=== PATIENT | male | born 1965 | race Caucasian/White ===

== ENCOUNTER 2016-06-22 15:10 | Emergency (ER) | payer OTHER ==
[~2016-06-22] VITALS: Ht 177.8 cm; Wt 86.2 kg
[2016-06-22 15:54] LABS: ABSOLUTE BASOPHIL COUNT 0 /CUMM (0.0-0.2); ABSOLUTE EOSINOPHIL COUNT 0 /CUMM (0.0-0.7); ABSOLUTE GRANULOCYTE CT 12.3 /CUMM (1.4-6.5); ABSOLUTE LYMPH COUNT 0.9 /CUMM (1.2-3.4); ABSOLUTE MONOCYTE COUNT 0.6 /CUMM (0.10-0.60); BASOPHIL % 0.2 % (0.0-2.0); EOSINOPHIL % 0.1 % (0-5); HEMATOCRIT 45.5 % (42-52); MEAN CORPUSCULAR HGB 30.3 PG (27.0-31.0); MEAN CORPUSCULAR HGB CONC 34.1 G/DL (33.0-37.0); MEAN CORPUSCULAR VOLUME 88.9 FL (80.0-94.0); MEAN PLATELET VOLUME 8.5 FL (7.4-10.4); PLATELET COUNT 254 /CUMM (130-400); RBC DISTRIBUTION WIDTH 12.5 % (11.5-14.5); RED BLOOD CELL CT 5.12 /CUMM (4.70-6.10); WHITE BLOOD CELL COUNT 13.9 /CUMM (4.8-10.8)
--- NOTE | 2016-06-22 15:56 | ED GI/GU/ABDOMINAL COMPLAINT ---
History of Present Illness General Chief Complaint: Abdominal Pain/Flank Pain Stated Complaint: FLANK PAIN,VOMITING Source: patient Exam Limitations: no limitations Vital Signs & Intake/Output Vital Signs & Intake/Output Vital Signs Date Time Temp Pulse Resp B/P Pulse O2 O2 Flow FiO2 Ox Delivery Rate 06/22 1838 99.3 87 18 128/66 98 06/22 1718 99.4 75 18 137/65 97 06/22 1640 Room Air 06/22 1520 99.5 85 16 143/76 9 Allergies Coded Allergies: No Known Allergies (06/22/16) Triage Note: PT STATES HE HAS BEEN HAVING BACK PAIN LEFT SIDE AND THEN HE BEGAN VOMITING,. PT STATES HE HASN'T STOPPED VOMITING SINCE. Triage Nurses Notes Reviewed? yes Onset: Abrupt Duration: day(s): (last night), constant, continues in ED Timing: recent history Quality/Severity: moderate, sharpness, severe Location: left flank Radiation: LLQ Activities at Onset: none No Modifying Factors: none HPI: 51-year-old male comes into emergency room with complaints of sudden onset left flank pain around midnight last night. Throbbing. Continuous. Pain wraps around left side. Denies any urinary symptoms. Denies any fever chills. Denies any other associated symptoms. (SHUBHAM PAL) Reconcile Medications Ciprofloxacin HCl (Cipro) 250 MG TABLET 1 TAB PO BID uti Ibuprofen 800 MG TABLET 1 TAB PO TID pain Oxycodone HCl/Acetaminophen (Percocet 5-325 MG Tablet) 5 MG-325 MG TABLET 1-2 TAB PO Q6P PRN pain Tamsulosin HCl (Flomax) 0.4 MG CAP.ER.24H 1 CAP PO DAILY kidney stone (ADRIAN CLEMENTS,SAEED) Past History Travel History Traveled to [place] past 21 day No Medical History Any Pertinent Medical History? see below for history Cardiovascular: hyperlipidemia Respiratory: obstructive sleep apnea Endocrine: diabetes Surgical History Surgical History: non-contributory Psychosocial History What is your primary language Lithuanian Tobacco Use: Never used ETOH Use: occasional use Illicit Drug Use: denies illicit drug use Family History Hx Contributory? No (SHUBHAM PAL) Review of Systems Review of Systems Constitutional: Reports: no symptoms. EENTM: Reports: no symptoms. Respiratory: Reports: no symptoms. Cardiovascular: Reports: no symptoms. GI: Reports: see HPI. Genitourinary: Reports: see HPI. Musculoskeletal: Reports: no symptoms. Skin: Reports: no symptoms. Neurological/Psychological: Reports: no symptoms. Hematologic/Endocrine: Reports: no symptoms. Immunologic/Allergic: Reports: no symptoms. All Other Systems: Reviewed and Negative (SHUBHAM PAL) Physical Exam Physical Exam General Appearance: well developed/nourished, no apparent distress, alert, awake Head: atraumatic, normal appearance Eyes: Bilateral: normal appearance, EOMI. Ears, Nose, Throat, Mouth: hearing grossly normal, moist mucous membrane Neck: normal inspection, full range of motion Respiratory: normal breath sounds, no respiratory distress Cardiovascular: regular rate/rhythm Gastrointestinal: normal bowel sounds, soft, non-tender Back: normal inspection Extremities: normal range of motion Neurologic/Psych: awake, alert, oriented x 3, normal gait, normal mood/affect Skin: intact, normal color Core Measures ACS in differential dx? No Severe Sepsis Present: No Septic Shock Present: No (SHUBHAM PAL) Progress Differential Diagnosis: appendicitis, biliary colic, bowel obstruction, colon cancer, diverticulitis, orchitis, pancreatitis, prostatitis, peptic ulcer, pyelonephritis, SBO, ureterolithiasis, urinary retention, urethritis, UTI/pyelo Plan of Care: Orders Procedure Date/time Status Add-on Test (ER Only) 06/22 1550 Active LIPASE 06/22 1530 Complete AMYLASE 06/22 1530 Complete COMPREHENSIVE METABOLIC PANEL 06/22 1529 Complete CBC WITHOUT DIFFERENTIAL 06/22 1529 Complete URINALYSIS 06/22 1523 Complete Laboratory Tests 06/22/16 1530: Anion Gap 18 H, Estimated GFR > 60, BUN/Creatinine Ratio 19.2, Glucose 217 H, Calcium 9.9, Total Bilirubin 0.8, AST 37, ALT 78 H, Alkaline Phosphatase 70, Total Protein 7.6, Albumin 4.8, Globulin 2.8, Albumin/Globulin Ratio 1.7, Amylase 121 H, Lipase 470 H, CBC w Diff NO MAN DIFF REQ, RBC 5.12, MCV 88.9, MCH 30.3, RDW 12.5, MPV 8.5, Gran % 88.7 H, Lymphocytes % 6.6 L, Monocytes % 4.4, Eosinophils % 0.1, Basophils % 0.2, Absolute Granulocytes 12.3 H, Absolute Lymphocytes 0.9 L, Absolute Monocytes 0.6, Absolute Eosinophils 0, Absolute Basophils 0, PUBS MCHC 34.1 06/22/16 1527: Urine Color YEL, Urine Clarity CLEAR, Urine pH 7.0, Ur Specific [place] 1.020, Urine Protein TRACE H, Urine Ketones 15 H, Urine Nitrite NEG, Urine Bilirubin NEG, Urine Urobilinogen 0.2, Ur Leukocyte Esterase NEG, Ur Microscopic SEDIMENT EXAMINED, Urine RBC 1-3, Urine WBC RARE, Urine Hemoglobin TRACE-INTACT H, Urine Glucose >=1000 H Diagnostic Imaging: Viewed by Me: CT Scan. Discussed w/RAD: CT Scan. Radiology Impression: SERVICE DATE: 06/22/16 EXAM TYPE: CAT - CT ABD & PELVIS W/O IV CONTRAS EXAMINATION: CT ABDOMEN AND PELVIS WITHOUT CONTRAST CLINICAL INFORMATION: Swelling onset flank pain. Evaluate for left-sided kidney stone. COMPARISON: None. TECHNIQUE: Multidetector volumetric imaging was performed from the superior aspect of the liver through the pubic symphysis. Sagittal and coronal reformatted images were obtained on the technologist's workstation. DLP: 448 mGy-cm. FINDINGS: Visualized lung bases are well aerated. Mild dependent atelectasis. The liver is normal in size but demonstrates diffusely decreased attenuation. No gross intrahepatic biliary ductal dilatation. The gallbladder has been surgically removed. The pancreas, spleen and adrenal glands are unremarkable. 3 mm calculus within the left ureterovesical junction resulting in moderate dilatation of the left ureter and mild left-sided hydronephrosis. There is stranding surrounding the left ureter and asymmetrical perinephric stranding of the left kidney. No other renal calculi are appreciated within the left or right kidneys. There is no right- sided hydronephrosis. Normal caliber loops of small and large bowel. Normal appendix. Small fat-containing umbilical hernia. The bladder is underdistended and therefore difficult to accurately evaluate. Coarse calcifications within the prostate gland which measures 4.2 cm in transverse dimension. No pelvic lymphadenopathy. No acute osseous abnormality. Mild degenerative changes of the lumbar spine. A few subcentimeter sclerotic densities within the bony pelvis are nonspecific but statistically claim service representative of bone islands. IMPRESSION: 1. Mild left-sided hydronephrosis and moderate dilatation of the left ureter secondary to 3 mm calculus within the left ureterovesical junction. Asymmetrical perinephric stranding of the left kidney and ureter is also present. 2. Diffusely decreased liver attenuation, most suggestive of hepatic steatosis. DICTATED BY: LORENE FONSECA MD DATE/TIME DICTATED:06/22/161650 TRAVEL ADMINISTRATOR:RADHA Initial ED EKG: none Comments: 06/22/2016 6:38:12 PM Patient clinically looks well. Nontoxic-appearing. In no apparent distress. Patient feels significantly better after IV medications. Patient will follow up with urology. Return if any other concerns. Patient understands and agrees with plan of care. Patient reevaluated multiple times. (MARILU ALLEN,SHUBHAM) Departure Departure Disposition: HOME OR SELF CARE Condition: Stable Clinical Impression Primary Impression: Kidney stone Referrals: DANNY HARGROVE MD (PCP/Family) Additional Instructions: Take Percocet, Flomax, and Motrin as prescribed. Follow-up with urologist. Return to the emergency room immediately if any other concerns worsening symptoms. Please go over all results of today's visit with your primary care doctor. Contact your primary care doctor to let them know you were here in the emergency room. There may be nonspecific findings which may not be related to your visit today here in the emergency room but may require further evaluation and chronic monitoring by your primary care doctor. If you had a laceration today the chance of foreign body always remains. You should follow-up with your primary care doctor for recheck in 3-5 days for a wound check. If you had an x-ray done there is a chance that a fracture could have been missed on initial read and you should follow-up with your primary care doctor for repeat x-rays if symptoms persist. If your blood pressure was elevated here in the emergency room please have rechecked by her primary care doctor within the next 48 hours by your primary care doctor. If you were prescribed a narcotic here in the emergency room or any type of controlled substances you're not allowed to drive while taking this medication or operate any type of heavy machinery. Narcotics can make you feel lightheaded dizziness nausea and can cause constipation. You may need to leaf size picker a stool softener. Thank you for choosing [facility] emergency room. Please return to the emergency room immediately if you have any other concerns worsening of symptoms. Departure Forms: Customer Survey General Discharge Information Prescriptions: Current Visit Scripts Oxycodone HCl/Acetaminophen (Percocet 5-325 MG Tablet) 1-2 TAB PO Q6P PRN pain #20 TAB Tamsulosin HCl (Flomax) 1 CAP PO DAILY #10 CAP Ibuprofen 1 TAB PO TID #30 TAB Ciprofloxacin HCl (Cipro) 1 TAB PO BID #14 TAB (SHUBHAM PAL) PA/FISHING INSTRUCTOR Co-Sign Statement Statement: ED Attending supervision documentation- [] I saw and evaluated the patient. I have also reviewed all the pertinent lab results and diagnostic results. I agree with the findings and the plan of care as documented in the PA's/FISHING INSTRUCTOR's documentation. [X] I have reviewed the ED Record and agree with the PA's/FISHING INSTRUCTOR's documentation. [] Additions or exceptions (if any) to the PAs/FISHING INSTRUCTOR's note and plan are summarized below: [] (ADRIAN CLEMENTS,SAEED)
[2016-06-22 16:03] LABS: GRANULOCYTE % 88.7 % (42.2-75.2)
--- NOTE | 2016-06-22 17:06 | CT SCAN REPORT ---
EXAMINATION: CT ABDOMEN AND PELVIS WITHOUT CONTRAST CLINICAL INFORMATION: Swelling onset flank pain. Evaluate for left-sided kidney stone. COMPARISON: None. TECHNIQUE: Multidetector volumetric imaging was performed from the superior aspect of the liver through the pubic symphysis. Sagittal and coronal reformatted images were obtained on the technologist's workstation. DLP: 448 mGy-cm. FINDINGS: Visualized lung bases are well aerated. Mild dependent atelectasis. The liver is normal in size but demonstrates diffusely decreased attenuation. No gross intrahepatic biliary ductal dilatation. The gallbladder has been surgically removed. The pancreas, spleen and adrenal glands are unremarkable. 3 mm calculus within the left ureterovesical junction resulting in moderate dilatation of the left ureter and mild left-sided hydronephrosis. There is stranding surrounding the left ureter and asymmetrical perinephric stranding of the left kidney. No other renal calculi are appreciated within the left or right kidneys. There is no right-sided hydronephrosis. Normal caliber loops of small and large bowel. Normal appendix. Small fat-containing umbilical hernia. The bladder is underdistended and therefore difficult to accurately evaluate. Coarse calcifications within the prostate gland which measures 4.2 cm in transverse dimension. No pelvic lymphadenopathy. No acute osseous abnormality. Mild degenerative changes of the lumbar spine. A few subcentimeter sclerotic densities within the bony pelvis are nonspecific but statistically access service representative of bone islands. IMPRESSION: 1. Mild left-sided hydronephrosis and moderate dilatation of the left ureter secondary to 3 mm calculus within the left ureterovesical junction. Asymmetrical perinephric stranding of the left kidney and ureter is also present. 2. Diffusely decreased liver attenuation, most suggestive of hepatic steatosis.
[2016-06-22] MEDS ORDERED: FLOMAX0.4 M1 PO (18:24)
[2016-06-22] MEDS ORDERED: PERCOCET 5-3251 EACH PO (18:24)
[2016-06-22] MEDS ORDERED: IBUPROFEN800 M1 PO (18:24)
[2016-06-22 18:38] VITALS: BP 128/66
[2016-06-22] MEDS ORDERED: CIPRO250 M1 PO (18:39)
== END 2016-06-22 19:13 ==
LOC: ERH 15:10
PROVIDERS: Emergency Medicine
DX: N20.0 Calculus of kidney (principal); R11.10 Vomiting, unspecified; E11.9 Type 2 diabetes mellitus without complications
CPT/HCPCS: 74176; 81001; 96361; 96374; 96375; J1885; J2405

== ENCOUNTER 2017-11-06 15:06 | Emergency (ER) | payer OTHER ==
[~2017-11-06] VITALS: Ht 177.8 cm; Wt 83.9 kg
[~2017-11-06 15:06] MED LIST: CIPRO250 M1 PO; FLOMAX0.4 M1 PO; IBUPROFEN800 M1 PO; PERCOCET 5-3251 EACH PO
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
[2017-11-06] MEDS ORDERED: VICODIN 5-3001 EACH PO (17:30)
[2017-11-06] MEDS ORDERED: CYCLOBENZAPRINE10 M1 PO (17:30)
[2017-11-06 17:37] VITALS: BP 128/71
== END 2017-11-06 17:42 ==
LOC: ERH 15:06
DX: S16.1XXA Strain of muscle, fascia and tendon at neck level, initial encounter (principal); S09.90XA Unspecified injury of head, initial encounter; V59.40XA Driver of pick-up truck or van injured in collision with unspecified motor vehicles in traffic accident, initial encounter